=== PATIENT | female | born 1930 | race Caucasian/White ===

== ENCOUNTER → 2021-07-21 | Outpatient (CLI) | payer MEDICARE, BC ==
[~2021-07-21] MED LIST: FERROUS SU325 MG/TAB PO; FOLIC ACID 40400 MCG PO; UNABLE; VITAMIN C500 MG PO; XALATAN EYE DROPS OU
== END ==
LOC: COL.RAD 09:59
DX: Z87.81 Personal history of (healed) traumatic fracture (principal)